=== PATIENT | female | born 1990 | race Caucasian/White ===

== ENCOUNTER → 2018-11-11 | Outpatient (CLI) | payer BC ==
[2018-11-11 10:18] LABS: CHOL/HDL RATIO 2.3; Cholesterol 136 mg/dL (50-200); HDL Cholesterol 59 mg/dL (>39); Low Density Lipoprotein Chol 61 mg/dL (0-110); Triglycerides 78 mg/dL (30-140); Very Low Density Lipoprot Chol 15 mg/dL (6-28)
== END ==
LOC: LAB 09:46 → LAB SHORT 09:46
PROVIDERS: Nurse Practitioner
DX: Z00.00 Encounter for general adult medical examination without abnormal findings (principal)
CPT/HCPCS: 80061

== ENCOUNTER → 2021-08-26 | Outpatient (CLI) | payer BC | END | disposition home or self-care (01) | LOC: LAB SHORT 16:23 | PROVIDERS: Obstetrics & Gynecology | DX: Z12.4 Encounter for screening for malignant neoplasm of cervix (principal) | CPT/HCPCS: G0123 ==